=== PATIENT | male | born 1960 | race Caucasian/White ===

== ENCOUNTER 2018-09-27 06:30 | Day surgery (SDC) | payer BC ==
--- NOTE | 2018-09-23 14:40 | HP ---
PREOPERATIVE HISTORY AND PHYSICAL: DATE OF SURGERY/ADMISSION: 09/27/18 [facility] DATE OF OFFICE VISIT/ENCOUNTER: 09/09/18 ATTENDING SURGEON: Kaylen Aly MD * (DICTATED BY DEQUAN QUINTANILLA) PROCEDURE: Left wrist carpal tunnel release. CHIEF COMPLAINT: Numbness and tingling, left hand. HISTORY OF PRESENT ILLNESS: This is a 58-year-old male, who has rheumatoid arthritis. He towards the end of 2017 had a flare-up of that and had significant pain, numbness and tingling in his left hand. The tingling has persisted. It is especially bad in his thumb. He has symptoms at night that awaken him. He uses a brace at night that is somewhat helpful, but symptoms persist. He also has had a cortisone injection for left carpal tunnel syndrome. This also was not successful in fully relieving the persistent numbness and tingling in his fingers. He had a nerve conduction study, which showed the carpal tunnel syndrome to be severe at the left wrist. He has consented to proceed with surgical intervention at this time. PAST MEDICAL HISTORY: Rheumatoid arthritis. PAST SURGICAL HISTORY: Right knee arthroscopy and hernia repair. CURRENT MEDICATIONS: 1. Folic acid 1 mg daily. 2. Meloxicam 15 mg daily. 3. Methotrexate 2.5 mg 4 capsules once weekly on Sunday. 4. Schley nasal spray 0.65% apply twice daily as needed. 5. Sulfasalazine 500 mg twice daily. 6. Tylenol 8 Hour Arthritis Pain 650 mg 1 every 6 hours p.r.n. pain. 7. Daily vitamin. ALLERGIES: No known drug allergies. The patient has an allergy to [employer]. FAMILY MEDICAL HISTORY: Hypertension. SOCIAL HISTORY: The patient is employed at a [employer] in [place]. He denies tobacco use and recreational drug use. He does drink alcohol on occasion. REVIEW OF SYSTEMS: Negative for general, cephalic, cardiovascular, respiratory , GI, , other musculoskeletal, integumentary, endocrine, neurologic, and hematologic symptoms. Infectious Diseases: Negative for MRSA, hepatitis C, HIV. PHYSICAL EXAMINATION GENERAL: Well-developed, well-nourished 58-year-old male, in no acute distress. VITAL SIGNS: Height 6 feet 1 inch, weight 189 pounds. Pulse rate 64, blood pressure 132/80. HEENT: Normocephalic, atraumatic. Pupils are equal, round, and reactive to light and accommodation. Extraocular movements are intact. Throat is clear. NECK: Supple. No palpable lymph nodes. PULMONARY: Lungs are clear to auscultation bilaterally. No wheezes, rales or rhonchi. CARDIOVASCULAR: Regular rate and rhythm. S1, S2. No murmurs, rub, or gallops. No edema. ABDOMEN: Positive bowel sounds. Soft, nontender. NEUROLOGICAL: Alert and oriented x3. Cranial nerves II through XII are intact. MUSCULOSKELETAL: On exam of his left wrist and hand, there is no swelling or ecchymosis. There is no thenar wasting, but he has mild weakness with thumb abduction. He can make a full fist and fully extend his fingers. He has decreased sensation in the median nerve distribution of the left hand, but not the ulnar nerve distribution. Increased pain with median nerve compression test. IMAGING STUDIES: Nerve conduction study EMG shows severe left carpal tunnel syndrome. IMPRESSION: Left wrist carpal tunnel syndrome. PLAN: The patient is scheduled to undergo a left wrist carpal tunnel release with Dr. Aly on 09/27/18. He will return to the office in 10 days for followup and suture removal. A prescription for Ultracet was e-scribed to the patient's pharmacy for postoperative pain management. DEQUAN QUINTANILLA [id number]/[facility] #: [id number] [place]
[~2018-09-27 06:30] MED LIST: Buffered Lidocaine 1% SYRIN* 1 ML/SYRINGE INTRADERM ONE; Dexamethasone IV* 4 MG/ML 1 ML (4 MG) IV SLOW PU ONE; Dexamethasone IV* 4 MG/ML 1 ML (4 MG) ONE; Famotidine IV* 10 MG/ML 2 ML (20 mg) IV ONE; Famotidine IV* 10 MG/ML 2 ML (20 mg) ONE; Lactated Ringers 1000 ML Bag* 1,000 ML IV SCH
[2018-09-27] MEDS ORDERED: Propofol* 10 MG/ML 20 ML BTL ONE (07:13)
[2018-09-27] MEDS ORDERED: fentaNYL* 50 MCG/ML 2 ML VIAL (100 MCG VIAL) ONE (07:13)
[2018-09-27] MEDS ORDERED: Midazolam* 1 MG/ML 2 ML VIAL (2 MG) ONE (07:13)
[2018-09-27] MEDS ORDERED: Lidocaine 2% PF * 5 ML VIAL ONE (07:13)
[2018-09-27] MEDS ORDERED: Lidocaine 1% INJ* 10 MG/ML 30 ML SDV ONE (07:20)
[2018-09-27] MEDS ORDERED: fentaNYL* 50 MCG/ML 2 ML VIAL (100 MCG VIAL) IV PRN (07:26)
[2018-09-27] MEDS ORDERED: oxyCODONE/Acetamin 5/325 MG* TAB PO PRN (07:26)
[2018-09-27] MEDS ORDERED: Ketorolac INJ* 30 MG/ML 1 ML VIAL IV PRN (07:26)
[2018-09-27] MEDS ORDERED: HYDROcodone/ACETAMIN 5-325 MG* 1 TAB PO PRN (07:26)
[2018-09-27] MEDS ORDERED: Ondansetron INJ* 2 MG/ML VIAL IV PRN (07:26)
[2018-09-27] MEDS ORDERED: Naloxone* 0.4 MG/ML 1 ML VIAL IV PRN (07:26)
[2018-09-27 07:57] VITALS: BP 112/61
--- NOTE | 2018-09-27 10:01 | OP ---
DATE OF OPERATION: 09/27/18 [facility] DATE OF : 62. SURGEON: Kaylen Aly MD. [employer] SUPERINTENDENT: DEQUAN Hammer. ANESTHESIA: Local MAC. PRE-OP DIAGNOSIS: Left carpal tunnel syndrome. POST-OP DIAGNOSIS: Left carpal tunnel syndrome. OPERATIVE PROCEDURE: Left carpal tunnel release. ESTIMATED BLOOD LOSS: Zero. TOURNIQUET TIME: Approximately 5 minutes. INDICATIONS FOR PROCEDURE: Davy is a 58-year-old man with numbness and tingling in the median nerve distribution of his left hand. He presents for left carpal tunnel release. DESCRIPTION OF PROCEDURE: The patient was brought to the operating room, was given a sedation anesthetic and a local infiltration of 10 cc of 1% plain lidocaine in the palm of his left hand. The skin of his left hand and forearm was prepped and draped in the usual sterile fashion. The hand and forearm were exsanguinated and the tourniquet elevated to 250 mmHg. A longitudinal incision was made in the palm in line with the ring finger. We dissected through the subcutaneous tissue down to the transverse carpal ligament. The ligament was divided sharply with the knife and then more proximally with the scissors. The nerve was dissected free from the surrounding tissue and there was an area of moderate compression at the mid portion of the ligament. The wound was irrigated and the skin edges reapproximated with 4- 0 nylon suture. The wound was dressed with Xeroform, 4x4, Webril, and an Jackson wrap. The patient tolerated the procedure well and was brought to the recovery room in good condition. [id number]/[facility] #: [id number] [id number]
== END 2018-09-27 08:17 | disposition home or self-care (01) ==
LOC: OREAST 06:30
PROVIDERS: ATTEND Orthopaedic Surgery
DX: G56.02 Carpal tunnel syndrome, left upper limb (principal); M06.9 Rheumatoid arthritis, unspecified
CPT/HCPCS: J1100; J2250; J2704; J3010